=== PATIENT | male | born 1980 | race Caucasian/White ===

== ENCOUNTER 2017-03-05 21:53 | Emergency (ER) | payer SELFPAY ==
[~2017-03-05] VITALS: Ht 172.7 cm; Wt 64.2 kg
[~2017-03-05 21:53] MED LIST: Augmentin PO; BACTRIM,SEPT1 TABLET PO; HYDROCODON-ACE1 EAC7 PO; MOTRIN800 MG PO; Motrin PO; NOHOMEMEDS; PREDNISONE10 M1 PO
[2017-03-05 22:37] LABS: HEMATOCRIT 41.5 % (38.0-50.0); MCH 30.1 PG (29.0-34.0); MCHC 33.3 G/DL (30.0-36.0); MCV 90.6 FL (86-99); PLATELET COUNT 233 K/uL (156-360); RBC DIS.WIDTH-CV 12.6 % (11.8-14.6); RBC DIS.WIDTH-SD 41.5 % (39-53); RED BLOOD COUNT 4.58 M/uL (4.00-5.50); WHITE BLOOD COUNT 8.5 K/uL (4.1-10.2)
[2017-03-05 22:49] LABS: CHLORIDE 108 mEq/L (99-109); POTASSIUM 4.2 mEq/L (3.7-5.4); SODIUM 142 mEq/L (136-147)
[2017-03-05 22:51] LABS: GLUCOSE 100 mg/dL (70-99)
[2017-03-05 22:52] LABS: ANION GAP 7 MEQ/L (2-14)
[2017-03-05 22:55] LABS: GFR ESTIMATE (CALCULATED) > 59 mL/min/
[2017-03-05 22:56] LABS: UREA NITROGEN (BUN) 15 mg/dL (9-23)
[2017-03-06 00:45] LABS: INFLUENZA A VIRAL ANTIGEN NEGATIVE; INFLUENZA B VIRAL ANTIGEN NEGATIVE
[2017-03-06 01:44] VITALS: BP 119/89
== END 2017-03-06 01:45 | disposition home or self-care (01) ==
LOC: EME 21:53
PROVIDERS: Emergency Medicine
DX: J06.9 Acute upper respiratory infection, unspecified (principal); K21.9 Gastro-esophageal reflux disease without esophagitis; Z87.891 Personal history of nicotine dependence
CPT/HCPCS: 71020; 80048; 85027; 87502; 87651 90; 99281; 99284; J1100

== ENCOUNTER 2017-11-17 21:18 | Emergency (ER) | payer SELFPAY ==
[~2017-11-17] VITALS: Ht 172.7 cm; Wt 65.8 kg
[2017-11-17 21:23] VITALS: BP 128/82
[2017-11-17] MEDS ORDERED: AMOXICILLIN500 MG PO (22:06)
== END 2017-11-17 22:30 | disposition home or self-care (01) ==
LOC: EME 21:18
DX: J02.9 Acute pharyngitis, unspecified (principal)
CPT/HCPCS: 99281; 99284